=== PATIENT | female | born 1965 | race Caucasian/White ===

== ENCOUNTER 2020-08-01 19:12 | Emergency (ER) | payer BC, OTHER ==
[2020-08-01] MEDS ORDERED: Acetaminophen/Codeine 30-300mg Tablet ONE (19:38)
--- NOTE | 2020-08-01 20:56 | RAD ---
RIGHT WRIST THREE VIEWS: 08/01/20 No fracture or carpal abnormality was seen. The distal radius and ulna appear normal as well. IMPRESSION: No acute findings. POS: HOME
== END 2020-08-01 20:00 | disposition home or self-care (01) ==
LOC: EDBD 19:12 → BURERS 19:12
DX: M65.9 Synovitis and tenosynovitis, unspecified (principal); F17.210 Nicotine dependence, cigarettes, uncomplicated; Z79.899 Other long term (current) drug therapy